=== PATIENT | male | born 1995 | race Caucasian/White ===

== ENCOUNTER 2016-04-25 09:09 | Emergency (ER) | payer OTHER ==
[~2016-04-25] VITALS: Ht 165.1 cm; Wt 72.3 kg
[~2016-04-25 09:09] MED LIST: Ibuprofen PO
[2016-04-25 09:15] VITALS: BP 131/49; PULSE 98; RESP 16; O2SAT 97
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
--- NOTE | 2016-04-25 11:12 | DRSVH ---
PROCEDURE: X-RAY CERVICAL SPINE, 2 OR 3 VIEWS INDICATIONS: trauma TECHNIQUE: 3 view(s) of the cervical spine were acquired. COMPARISON: None. FINDINGS: Bones: No fractures or dislocations to the C7-T1 level. The lateral masses of C1 appear intact on t he odontoid view. No suspicious bony lesions. Soft tissues: No prevertebral soft tissue swelling. IMPRESSION: No traumatic abnormality is appreciated in these 3 views of the cervical spine Dictated by: Pankaj Ayala M.D. on 04/25/2016 at 11:10 Approved by: Pankaj Ayala M.D. on 04/25/2016 at 11:10
[2016-04-25] MEDS ORDERED: HYDR-4003 PO (11:51)
[2016-04-25 12:14] VITALS: BP 128/52; PULSE 94; RESP 16; O2SAT 98
== END 2016-04-25 12:30 | disposition home or self-care (01) ==
LOC: EDBD 09:09 → SED 09:09 → EDUNIT# 09:09 → SED 12:30
DX: S00.83XA Contusion of other part of head, initial encounter (principal); S16.1XXA Strain of muscle, fascia and tendon at neck level, initial encounter; Y04.0XXA Assault by unarmed brawl or fight, initial encounter; Y93.89 Activity, other specified; Y92.009 Unspecified place in unspecified non-institutional (private) residence as the place of occurrence of the external cause; Y99.8 Other external cause status; F17.200 Nicotine dependence, unspecified, uncomplicated; Z88.8 Allergy status to other drugs, medicaments and biological substances

== ENCOUNTER 2016-04-25 21:41 | Emergency (ER) | payer OTHER ==
[~2016-04-25] VITALS: Ht 167.6 cm; Wt 68.2 kg
[~2016-04-25 21:41] MED LIST changes: +HYDR-4003 PO
[2016-04-25 21:53] VITALS: BP 141/81; PULSE 86; RESP 16; O2SAT 98
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
[2016-04-25] MEDS ORDERED: Ketorolac 30 mg/mL 2 mL Inj IM ONE (22:25)
--- NOTE | 2016-04-26 06:54 | PCM.EDPN ---
ED Note Date of Service Apr 26, 2016 I reviewed the stone is documentation in detail. I assumed care of this patient from Dr. Galan at approximately 6 AM. Carlos states that he really needs to get out of his current environment because at some "bad place" for him. [facility] would [facility] to [facility]. I just got off the phone [facility] expect discharges this morning and should be able to take him later today. They have no bed at this moment for him. We will get him a breakfast voucher and have him wait in the [facility] social work will meet with him and try to facilitate his transfer to the crisis center today. He is in agreement with this plan Assessment: Acute situational disturbance. I do not believe this gentleman is at high risk for suicide. Plan: To [facility] later today. Details as above. Abundio Lane MD Apr 26, 2016 06:53
== END 2016-04-26 07:13 | disposition home or self-care (01) ==
LOC: EDBD 21:41 → SED 21:41
DX: F60.3 Borderline personality disorder (principal); F43.0 Acute stress reaction; F17.200 Nicotine dependence, unspecified, uncomplicated; Z59.0 Homelessness; Z88.8 Allergy status to other drugs, medicaments and biological substances

== ENCOUNTER 2016-04-29 11:10 | Emergency (ER) | payer OTHER ==
[~2016-04-29] VITALS: Ht 162.6 cm; Wt 6.7 kg
[2016-04-29 11:24] VITALS: BP 121/80; PULSE 85; RESP 16; O2SAT 97
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
[2016-04-29] MEDS ORDERED: Ketorolac 30 mg/mL 2 mL Inj IM ONE (11:40)
[2016-04-29 12:04] LABS: BASOPHILS % (AUTO) 0.3 % (0-3); EOSINOPHILS % (AUTO) 0.6 % (0-5); MONOCYTES % (AUTO) 12.8 % (4-12); Mean Corpuscular Hemoglobin 32.5 pg (27.0-35.0); Mean Corpuscular Volume 93.9 fL (81-100); NEUTROPHILS % (AUTO) 58.9 % (40-74); Platelet Count 137 bil/L (150-400)
--- NOTE | 2016-04-29 12:32 | DRSVH ---
PROCEDURE: X-RAY KUB ([id number]) INDICATIONS: homeless, ABDOMEN PAIN TECHNIQUE: One view of the abdomen acquired. COMPARISON: None. FINDINGS: Surgical changes and devices: None. Bowel: Bowel gas pattern is normal. Soft tissues: No suspicious abdominal calcifications. Visualized solid organ contours appear normal in size. Bones: No suspicious bony lesions. IMPRESSION: Normal for age, source of pain is not found. Dictated by: Abelardo Velazquez M.D. on 04/29/2016 at 12:30 Approved by: Abelardo Velazquez M.D. on 04/29/2016 at 12:30
[2016-04-29] MEDS ORDERED: Influenza (Adult) Vaccine 0.5 mL Syringe IM ONE (13:40)
[2016-04-29 14:10] VITALS: BP 135/77; PULSE 90; RESP 16; O2SAT 98
[2016-04-29 14:21] LABS: APPEARANCE,URINE HAZY (CLEAR,HAZY); COLOR,URINE YELLOW (YELLOW); OCCULT BLOOD,URINE NEGATIVE (NEGATIVE); PH,URINE 7.5 (5.0-8.0); UROBILINOGEN,URINE NORMAL (NORMAL)
== END 2016-04-29 14:12 | disposition home or self-care (01) ==
LOC: SED 11:10
DX: R10.84 Generalized abdominal pain (principal); R11.2 Nausea with vomiting, unspecified; R51 Headache; F17.200 Nicotine dependence, unspecified, uncomplicated; Z59.0 Homelessness; Z87.820 Personal history of traumatic brain injury; Z91.5 Personal history of self-harm; Z88.5 Allergy status to narcotic agent; Z23 Encounter for immunization
CPT/HCPCS: 36415; 74000; 80053; 81000; 85025; 90471; 96372; 99284; J1885; Q2039

== ENCOUNTER 2016-05-01 18:30 | Emergency (ER) | payer OTHER ==
[~2016-05-01] VITALS: Ht 162.6 cm; Wt 72.3 kg
[2016-05-01 18:37] VITALS: BP 129/87; PULSE 101; RESP 14; O2SAT 95
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
== END 2016-05-01 20:18 | disposition home or self-care (01) ==
LOC: SED 18:30
DX: M54.5 Low back pain (principal); M79.672 Pain in left foot; X50.3XXA Overexertion from repetitive movements, initial encounter; Y93.89 Activity, other specified; Y92.9 Unspecified place or not applicable; Y99.8 Other external cause status; Q89.8 Other specified congenital malformations; F17.200 Nicotine dependence, unspecified, uncomplicated; Z88.8 Allergy status to other drugs, medicaments and biological substances; Z59.0 Homelessness

== ENCOUNTER 2016-05-05 13:58 | Emergency (ER) | payer OTHER ==
[~2016-05-05] VITALS: Ht 162.6 cm; Wt 72.3 kg
[2016-05-05 14:04] VITALS: BP 137/86; PULSE 95; RESP 18; O2SAT 97
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
[2016-05-05] MEDS ORDERED: Ondansetron 8 mg ODT Tablet PO ONE (18:35)
[2016-05-05] MEDS ORDERED: Ketorolac 30 mg/mL 2 mL Inj IM ONE (18:35)
--- NOTE | 2016-05-05 19:20 | DRSVH ---
PROCEDURE: X-RAY RIGHT FOOT COMPLETE, MINIMUM THREE VIEWS ([id number]) INDICATIONS: trauma TECHNIQUE: 3 views of the foot were acquired. COMPARISON: None. FINDINGS: Bones: No fractures or dislocations. No suspicious bony lesions. Soft tissues: No tibiotalar joint effusion. Achilles tendon appears normal. IMPRESSION: No visualized acute fracture or dislocation. However, if clinical concern and/or pain pe rsist, short interval imaging followup in 7-10 days is recommended, as occult injury cannot be defini tively excluded. Dictated by: Ani Brown M.D. on 05/05/2016 at 19:18 Approved by: Ani Brown M.D. on 05/05/2016 at 19:18
== END 2016-05-05 19:19 ==
LOC: SED 13:58
DX: S00.83XA Contusion of other part of head, initial encounter (principal); S90.121A Contusion of right lesser toe(s) without damage to nail, initial encounter; S50.12XA Contusion of left forearm, initial encounter; Y04.8XXA Assault by other bodily force, initial encounter; Y92.9 Unspecified place or not applicable; Y93.89 Activity, other specified; Y99.8 Other external cause status; R40.20 Unspecified coma; R11.10 Vomiting, unspecified; F17.200 Nicotine dependence, unspecified, uncomplicated; Z87.820 Personal history of traumatic brain injury; Z91.5 Personal history of self-harm; Z59.0 Homelessness; Z88.5 Allergy status to narcotic agent
CPT/HCPCS: 73630; 96372; 99284; J1885

== ENCOUNTER 2016-05-07 10:20 | Emergency (ER) | payer OTHER ==
[2016-05-07 10:45] VITALS: BP 117/70; PULSE 81; RESP 16; O2SAT 98
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
[2016-05-07 14:15] VITALS: BP 120/69; PULSE 76; RESP 16; O2SAT 98
== END 2016-05-07 14:15 | disposition home or self-care (01) ==
LOC: SED 10:20
DX: F43.0 Acute stress reaction (principal); F17.200 Nicotine dependence, unspecified, uncomplicated; F43.10 Post-traumatic stress disorder, unspecified; Z87.820 Personal history of traumatic brain injury; Z59.0 Homelessness; Z88.6 Allergy status to analgesic agent